=== PATIENT | male | born 1960 | race Caucasian/White ===

== ENCOUNTER 2017-05-31 00:04 | Emergency (ER) | payer MEDICARE, OTHER ==
[2017-05-31] MEDS ORDERED: 0.9 % SODIUM CHLORIDE 1000ML 1,000 ML IV SCH (00:15)
[2017-05-31 00:38] LABS: URINE APPEARANCE CLEAR; URINE BILIRUBIN NEGATIVE (NEGATIVE); URINE BLOOD NEGATIVE (NEGATIVE); URINE COLOR YELLOW; URINE GLUCOSE (UA) NEGATIVE (NEGATIVE); URINE KETONE NEGATIVE (NEGATIVE); URINE LEUKOCYTE ESTERASE NEGATIVE (NEGATIVE); URINE NITRITE NEGATIVE (NEGATIVE); URINE PROTEIN NEGATIVE (NEGATIVE); URINE UROBILINOGEN 0.2 E.U./dL (0.20 - 1.00)
[2017-05-31 00:38] LABS: HEMATOCRIT 45.3 % (42.0-52.0); HEMOGLOBIN 16.4 gm/dl (14.0-18.0); MEAN CELL VOLUME 88.6 fl (81-97); MEAN CORPUSCULAR HEMOGLOBIN 32.1 pg (27-33); MEAN CORPUSCULAR HGB CONC 36.2 g/dl (32-36); MEAN PLATELET VOLUME 10.1 fl (7.4-10.4); PLATELET COUNT 259 K/uL (130-400); RED BLOOD COUNT 5.11 M/uL (4.40-5.70); RED CELL DISTRIBUTION WIDTH 12.5 % (11.5-14.5); WHITE BLOOD COUNT W/O DIFF 6.2 K/uL (4.2-12.2)
[2017-05-31] MEDS ORDERED: ACETAMINOPHEN 1,000 MG/100 ML BTL IVPB ONE (00:44)
[2017-05-31] MEDS ORDERED: HYOSCYAMINE SULFATE ODT 0.125 MG TAB.SUBL SL ONE (00:44)
[2017-05-31 00:47] LABS: BLOOD UREA NITROGEN 14 mg/dL (6-20); CREATININE 1.2 mg/dL (0.7-1.2); EST GLOMERULAR FILTRATION RATE > 60 mL/min
[2017-05-31 00:48] LABS: TOTAL PROTEIN 6.5 g/dL (6.6-8.7)
--- NOTE | 2017-05-31 00:49 | Emergency Department Record ---
History of Present Illness - General Chief Complaint: Abdominal Pain Stated Complaint: ABDOMINAL PAIN X2 DAYS Time Seen by Provider: 05/31/17 00:06 Source: Patient Mode of Arrival: Ambulatory Limitations: No limitations - History of Present Illness Initial Comments: 56 yo male presents to ED for evaluation of severe abdominal "cramping" for the past 2 days. 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 Patient denies fevers, chills, nausea, or vomiting symptoms, patient does report constipation symptoms however. 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 MD Complaint: Abdominal pain Onset/Timin -: Days(s) Location: Periumbilical, Suprapubic Radiation: None Migration to: No migration Severity: Severe Quality: Cramping Consistency: Constant Improves With: Nothing Worsens With: Nothing - Related Data Previous Rx's Medication Instructions Recorded Hyoscyamine Sulfate [Levsin-Sl] 0.25 mg SL Q8H PRN #20 tab.subl 05/31/17 Allergies Allergy/AdvReac Type Severity Reaction Status Date / Time codeine Allergy ALTERED Verified 05/31/17 00:15 MENTAL STATUS Travel Screening - Travel/Exposure Within Last 30 Days Have you traveled within the last 30 days?: No - Travel/Exposure Within Last Year Have you traveled outside the [place] in the last year?: No - Additonal Travel Details Have you been exposed to anyone with a communicable illness?: No - Travel Symptoms Symptom Screening: None Review of Systems Constitutional: Denies: Chills, Fever, Malaise, Night sweats Eyes: Denies: Eye discharge, Eye pain ENT: Denies: Congestion, Ear pain, Epistaxis Respiratory: Denies: Cough, Dyspnea, Hemoptysis Cardiovascular: Denies: Chest pain, Dyspnea on exertion Endocrine: Denies: Fatigue, Heat or cold intolerance Gastrointestinal: Reports: Abdominal pain, Constipation, Nausea. Denies: Vomiting Genitourinary: Denies: Incontinence, Retention Musculoskeletal: Denies: Arthralgia, Back pain, Gout, Joint swelling Skin: Denies: Bruising, Change in color Neurological: Denies: Abnormal gait, Confusion, Headache, Seizure Psychiatric: Denies: Anxiety Hematological/Lymphatic: Denies: Anemia, Blood Clots Past Medical History - SOCIAL HISTORY Smoking Status: Never smoker Alcohol Use: None Drug Use: None - RESPIRATORY Hx Respiratory Disorders: No - CARDIOVASCULAR Hx Cardio Disorders: No - NEURO Hx Neuro Disorders: Yes Hx CVA: Yes Hx Dementia: Yes Hx Neuropathy: Yes 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 - GI Hx GI Disorders: Yes Hx Nausea/Vomiting: Yes Hx Wt Loss/Wt Gain: Yes - Hx Genitourinary Disorders: Yes 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 - ENDOCRINE Hx Endocrine Disorders: Yes Hx Thyroid Disease: Yes - MUSCULOSKELETAL Hx Musculoskeletal Disorders: Yes Hx Fibromyalgia: Yes - PSYCH Hx Psych Problems: Yes Hx Anxiety: Yes Hx Depression: Yes (ptsd) - HEMATOLOGY/ONCOLOGY Hx Hematology/Oncology Disorders: No Family Medical History Any Significant Family History?: No Physical Exam - General General Appearance: Alert, Oriented x3, Cooperative, Moderate distress Limitations: No limitations - Head Head exam: Atraumatic, Normocephalic, Normal inspection Head exam detail: negative: Abrasion, Contusion, Cooper's sign, General tenderness, Hematoma, Laceration - Eye Eye exam: Normal appearance. negative: Conjunctival injection, Periorbital swelling, Periorbital tenderness, Scleral icterus - ENT Ear exam: negative: Auricular hematoma, Auricular trauma Nasal Exam: negative: Active bleeding, Discharge, Dried blood, Foreign body Mouth exam: negative: Drooling, Laceration, Muffled voice, Tongue elevation - Neck Neck exam: Normal inspection. negative: Meningismus, Tenderness - Respiratory Respiratory exam: Normal lung sounds bilaterally. negative: Rales, Respiratory distress, Rhonchi, Stridor - Cardiovascular Cardiovascular Exam: Regular rate, Normal rhythm, Normal heart sounds - GI/Abdominal GI/Abdominal exam: Soft, Rigid, Tenderness, Other (Diffuse TTP on examination, guarding present, ? rigid abdomen). negative: Rebound - Rectal Rectal exam: Deferred - exam: Deferred - Extremities Extremities exam: Normal inspection. negative: Calf tenderness, Pedal edema, Tenderness - Back Back exam: Denies: CVA tenderness (R), CVA tenderness (L) - Neurological Neurological exam: Alert, Normal gait, Oriented X3 - Psychiatric Psychiatric exam: Anxious - Skin Skin exam: Normal color. negative: Abrasion Type of lesion: negative: abrasion Course Vital Signs 05/31/17 00:16 Temperature 97.4 F L Pulse Rate 61 Respiratory 20 Rate Blood Pressure 126/96 Pulse Ox 98 - Reevaluation(s) Reevaluation #1: 05/31/17 01:03 Labs reviewed and are grossly unremarkable for an acute process. Reevaluation #2: 05/31/17 02:24 CT Abdomen and Pelvis: Thickening fo the urinary bladder, correlate with UA 13 mm nodule right lung base, recommend follow-up in 3 months. Patient reassessed and reports that his cramping symptoms are greatly improved, patient appears stable for discharge at this time. Patient was encouraged to follow-up for repeat imaging the mentioned lung nodule to the right lung base as well in 3 months. Patient verbalizes understanding of all instructions and appears stable for discharge at this time. Medical Decision Making - Lab Data Result diagrams: 05/31/17 00:30 05/31/17 00:30 Lab Results 05/31/17 05/31/17 Range/Units 00:30 00:33 WBC 6.2 (4.2-12.2) K/uL RBC 5.11 (4.40-5.70) M/uL Hgb 16.4 (14.0-18.0) gm/dl Hct 45.3 (42.0-52.0) % MCV 88.6 (81-97) fl MCH 32.1 (27-33) pg MCHC 36.2 H (32-36) g/dl RDW 12.5 (11.5-14.5) % Plt Count 259 (130-400) K/uL MPV 10.1 (7.4-10.4) fl Neutrophils % 40.0 L (47-80) % Band Neutrophils % 0.0 (0-5) % Eosinophils % Not Reportable Basophils % Not Reportable Lymphocytes 53.0 H (16-45) % Monocytes 6.0 (0-9) % Basophils 0.0 (0-6) % Eosinophil Count 1.0 (0-6) % Urine Color Yellow Urine Appearance Clear Urine pH 6.0 (5.0-8.0) Ur Specific [place] 1.020 (1.002-1.030) Urine Protein Negative (NEGATIVE) Urine Glucose (UA) Negative (NEGATIVE) Urine Ketones Negative (NEGATIVE) Urine Blood Negative (NEGATIVE) Urine Nitrite Negative (NEGATIVE) Urine Bilirubin Negative (NEGATIVE) Urine Urobilinogen 0.2 (0.20 - 1.00) E.U./dL Ur Leukocyte Esterase Negative (NEGATIVE) Disposition Disposition: Discharge Clinical Impression: Abdominal pain Qualifiers: Abdominal location: generalized Qualified Code(s): R10.84 - Generalized abdominal pain Disposition: Home, Self-Care Condition: (2) Stable Instructions: Abdominal Pain (ED) Additional Instructions: Return to ED if your symptoms worsen or if you have any concerns. Levsin as directed. Follow-up with your family doctor in 1-3 days as directed. Follow-up with your family doctor regarding lung nodule for repeat imaging in 3 months. Prescriptions: Hyoscyamine Sulfate [Levsin-Sl] 0.25 mg SL Q8H PRN #20 tab.subl PRN Reason: Abdominal Pain Forms: Patient Portal Access Time of Disposition: 02:27 Quality - Quality Measures Quality Measures: N/A - Blood Pressure Screening Does Patient Have Any of the Following: No Blood Pressure Classification: Hypertensive Reading Systolic Measurement: 126 Diastolic Measurement: 96 Screening for High Blood Pressure: < First Hypertensive BP, F/U Documented > [ G8950] First Hypertensive Follow-up Interventions: Referral to alternative/primary care provider.
[2017-05-31 00:50] LABS: GLUCOSE,RANDOM 87 mg/dL (74-109)
[2017-05-31 00:52] LABS: ALB/GLOB RATIO 2.3 (1.1-1.8); ALBUMIN 4.5 g/dL (4.0-5.0); ALKALINE PHOSPHATASE 64 U/L (40-129); ALT/SGPT 16 U/L (<41); AST/SGOT 22 U/L (10.0-50.0)
[2017-05-31 00:53] LABS: LIPASE 46 U/L (13-60)
--- NOTE | 2017-05-31 08:43 | CT SCAN REPORT ---
EXAM: CT OF THE ABDOMEN AND PELVIS WITH CONTRAST HISTORY: ABDOMINAL PAIN. TECHNIQUE: Sequential axial images were obtained from the diaphragms through the ischiorectal fossa after intravenous administration of 100 ml of Omnipaque 300 contrast material. FINDINGS: The visualized lung bases demonstrate a 13 mm nodule in the right lung base. The gallbladder is surgically removed. No gross abnormalities within the liver. The pancreas and spleen appear normal. The adrenal glands appear normal. There is an indeterminate cystic lesion in the left kidney measuring 16 mm. This should be further evaluated with multiphasic MR imaging. The small bowel appears normal. The colon appears normal.. The appendix is visualized and appears normal. There is incomplete distention versus wall thickening of the urinary bladder. The prostate gland appears normal. The osseous structures are normal. IMPRESSION: 1. CIRCUMFERENTIAL WALL THICKENING OF THE URINARY BLADDER. THIS IS LIKELY RELATED TO UNDERDISTENTION OR CHRONIC OBSTRUCTION. CYSTITIS CAN ALSO NOT BE ENTIRELY EXCLUDED. CORRELATION WITH PATIENT'S URINALYSIS IS RECOMMENDED. 2. 13 MM NODULE IN THE RIGHT LUNG BASE. CONTINUED SHORT TERM FOLLOW-UP IMAGING IN THREE MONTHS IS RECOMMENDED. DEDICATED CT OF THE CHEST IS ALSO RECOMMENDED FOR EVALUATION OF ADDITIONAL NODULES. 3. INDETERMINATE LESION IN THE LEFT KIDNEY MEASURING 16 MM. THIS SHOULD BE FURTHER EVALUATED WITH MULTIPHASIC MR IMAGING. JOB NUMBER: [id number] MTDD
== END 2017-05-31 02:35 | disposition home or self-care (01) ==
LOC: ER 00:04
DX: R10.84 Generalized abdominal pain (principal); R91.1 Solitary pulmonary nodule
CPT/HCPCS: 99284 ×2; 96365; 83690; 80053; 81003; 85027; 74177; Q9967; J1980; J7030

== ENCOUNTER 2017-06-29 19:34 | Emergency (ER) | payer MEDICARE, OTHER ==
[2017-06-29] MEDS ORDERED: ONDANSETRON HCL IV 4 MG/2 ML VIAL IV ONE (19:40)
[2017-06-29] MEDS ORDERED: 0.9 % SODIUM CHLORIDE 1,000 ML BAG IV ONE ×2 (19:40→20:40)
[2017-06-29] MEDS ORDERED: ACETAMINOPHEN 1,000 MG/100 ML BTL IVPB ONE (19:40)
--- NOTE | 2017-06-29 19:51 | Emergency Department Record ---
History of Present Illness - General Chief Complaint: Abdominal Pain Stated Complaint: ABDOMINAL PAIN Time Seen by Provider: 06/29/17 19:35 Source: Patient, Family Mode of Arrival: Ambulatory Limitations: No limitations - History of Present Illness Initial Comments: 56 yo male presents with abdominal pain for about one month. The pain is a cramp like pain. It goes from the up to the lower abdomen. He has decreased appetite with the pain. He has had several prior surgeries including gall bladder, partial colon resection, feeding tubes (after strokes). He was seen in the ER in May. He had a follow up MRI of his abdomen but does not know the results. He is scheduled to follow up with Dr Ignacio July 23. No current PCP at [facility]. The patient reports some abdominal issue dating back to about 2013. He developed abdominal pain after a colonoscopy in 2013. 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 This was removed in [facility] after some blood in the stools. He reports troubles since that time. He attributes many of his health issues to chronic lead poisoning that lead to many chronic medical conditions. He recently moved to the area. MD Complaint: Abdominal pain -: Days(s) Location: Epigastric Radiation: Suprapubic Migration to: Periumbilical Severity: Severe Quality: Aching, Cramping Consistency: Constant Improves With: Nothing Worsens With: Eating Associated Symptoms: Denies other symptoms - Related Data Home Medications Medication Instructions Recorded Confirmed Last Taken Acetaminophen 325 mg PO 06/29/17 Unknown Atorvastatin Calcium 40 mg PO QHS 06/29/17 06/29/17 06/29/17 Bisacodyl 5 mg PO 06/29/17 Unknown Cholecalciferol (Vitamin D3) 1,000 unit PO 06/29/17 Unknown [Vitamin D3] Donepezil HCl 10 mg PO 06/29/17 Unknown Duloxetine HCl [Cymbalta] 60 mg PO 06/29/17 Unknown Hydroxyzine HCl 5 mg PO 06/29/17 Unknown Lamotrigine 100 mg PO 06/29/17 Unknown Levothyroxine Sodium [Synthroid] 25 mcg PO DAILY 06/29/17 06/29/17 06/29/17 Magnesium Oxide [Mag Ox] 400 mg PO DAILY 06/29/17 06/29/17 06/29/17 Oxcarbazepine [Trileptal] 150 mg PO 06/29/17 Unknown Oxybutynin Chloride [Ditropan] 5 mg PO DAILY 06/29/17 06/29/17 06/29/17 Pantoprazole Sodium 40 mg PO DAILY 06/29/17 06/29/17 06/29/17 Pregabalin [Lyrica] 200 mg PO 06/29/17 Unknown Tamsulosin HCl [Flomax] 0.4 mg PO DAILY 06/29/17 06/29/17 06/29/17 Trazodone HCl 100 mg PO 06/29/17 Unknown Previous Rx's Medication Instructions Recorded Hydrocodone/Acetaminophen [[place] 1 each PO TID PRN #10 tablet 06/29/17 5-325 Tablet] Hyoscyamine Sulfate [Levsin-Sl] 0.125 mg SL BID PRN #15 tab.subl 06/29/17 Allergies Allergy/AdvReac Type Severity Reaction Status Date / Time codeine Allergy ALTERED Verified 05/31/17 00:15 MENTAL STATUS Travel Screening - Travel/Exposure Within Last 30 Days Have you traveled within the last 30 days?: No - Travel Symptoms Symptom Screening: None Review of Systems Constitutional: Denies: Chills, Fever, Malaise, Weakness Eyes: Denies: Eye discharge ENT: Denies: Congestion, Throat pain Respiratory: Denies: Cough, Dyspnea, Hemoptysis, Stridor, Wheezes Cardiovascular: Denies: Chest pain, Palpitations, Syncope Endocrine: Denies: Fatigue Gastrointestinal: Reports: Abdominal pain, Constipation (smaller firm stools), Nausea, Vomiting. Denies: Diarrhea Genitourinary: Denies: Dysuria, Frequency, Hematuria Musculoskeletal: Denies: Arthralgia, Back pain, Myalgia, Neck pain Skin: Denies: Bruising, Change in color, Rash Neurological: Denies: Headache, Numbness, Weakness Psychiatric: Reports: Anxiety Hematological/Lymphatic: Denies: Blood Clots, Easy bleeding, Easy bruising, Swollen glands Past Medical History - SOCIAL HISTORY Smoking Status: Never smoker Alcohol Use: None Drug Use: None - RESPIRATORY Hx Respiratory Disorders: No - CARDIOVASCULAR Hx Cardio Disorders: No - NEURO Hx Neuro Disorders: Yes Hx CVA: Yes Hx Dementia: Yes Hx Neuropathy: Yes 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 - GI Hx GI Disorders: Yes Hx Nausea/Vomiting: Yes Hx Wt Loss/Wt Gain: Yes - Hx Genitourinary Disorders: Yes 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 negative: Conjunctival injection, Scleral icterus - ENT ENT exam: Normal exam, Mucous membranes moist Ear exam: Normal external inspection Nasal Exam: Normal inspection Mouth exam: Normal external inspection Teeth exam: Normal inspection Throat exam: Normal inspection - Neck Neck exam: Normal inspection - Respiratory Respiratory exam: Normal lung sounds bilaterally. negative: Respiratory distress - Cardiovascular Cardiovascular Exam: Regular rate, Normal rhythm, Normal heart sounds - GI/Abdominal GI/Abdominal exam: Soft, Tenderness (the abdomen is very soft with diffuse tenderness). negative: Distended, Guarding, Rebound, Rigid - Rectal Rectal exam: Deferred - exam: Deferred - Extremities Extremities exam: Normal inspection, Full ROM, Normal capillary refill. negative: Tenderness - Back Back exam: Reports: Normal inspection, Full ROM. Denies: Muscle spasm, Rash noted, Tenderness - Neurological Neurological exam: Alert, Normal gait, Oriented X3 - Psychiatric Psychiatric exam: Normal affect, Normal mood - Skin Skin exam: Dry, Intact, Normal color, Warm Course Vital Signs 06/29/17 06/29/17 19:37 19:40 Temperature 97.6 F 97.6 F Pulse Rate [ 75 Pulse Ox Probe] Respiratory 20 20 Rate Blood Pressure 131/92 [Left Arm] Pulse Ox 99 99 - Reevaluation(s) Reevaluation #1: CT reviewed from 05.31.17 06/29/17 19:51 06/29/17 20:26 The labs were reviewed. No acute changes on the CBC, CMP or Lipase The Lactic Acid is normal 06/29/17 22:33 The UA is negative 06/29/17 22:[address] scan result was received. No acute intraabdominal process. Nodule noted in the right lower lung. Post op dilatation of the CBD may consider ERCP. The labs are normal without signs of obstruction with normal LFTS, BIli, Alk Phos, Lipase. 06/29/17 22:57 We discussed follow up as an outpatient for his abdominal pain, referral for a local PCP and a general surgery referral to assist in helping him with is abdominal pain. Medical Decision Making - Lab Data Result diagrams: 06/29/17 19:50 06/29/17 19:50 Disposition Disposition: Discharge Clinical Impression: Abdominal pain Disposition: Home, Self-Care Condition: (1) Good Instructions: Abdominal Pain (ED) Additional Instructions: Call Dr Self for a new family doctor You have been referred to the [facility] for General Surgery for your abdominal pain Prescriptions: Hydrocodone/Acetaminophen [[place] 5-325 Tablet] 1 each PO TID PRN #10 tablet PRN Reason: Pain - General Hyoscyamine Sulfate [Levsin-Sl] 0.125 mg SL BID PRN #15 tab.subl PRN Reason: Abdominal Pain Referrals: Clayton Singh [DOCTOR OF OSTEOPATH] - NICOLE SELF [MEDICAL DOCTOR] - [facility] Specialty Clinics [Provider Group] Forms: Patient Portal Access Time of Disposition: 23:00 Quality - Quality Measures Quality Measures: N/A - Blood Pressure Screening Does Patient Have Any of the Following: No Blood Pressure Classification: Pre-Hypertensive BP Reading Systolic Measurement: 127 Diastolic Measurement: 74 Screening for High Blood Pressure: < Pre-Hypertensive BP, F/U Documented > [ G8950] Pre-Hypertensive Follow-up Interventions: Referral to alternative/primary care provider.
[2017-06-29 19:52] LABS: BASO % 0.2 % (0-6); EOS % 1.3 % (0-6); GRAN % 47.6 % (47-80); HEMATOCRIT 43.8 % (42.0-52.0); HEMOGLOBIN 15.7 gm/dl (14.0-18.0); MEAN CELL VOLUME 89.9 fl (81-97); MEAN CORPUSCULAR HEMOGLOBIN 32.2 pg (27-33); MEAN CORPUSCULAR HGB CONC 35.8 g/dl (32-36); MEAN PLATELET VOLUME 9.7 fl (7.4-10.4); MONO % 9.9 % (0-9); PLATELET COUNT 215 K/uL (130-400); RED BLOOD COUNT 4.87 M/uL (4.40-5.70); RED CELL DISTRIBUTION WIDTH 12.5 % (11.5-14.5); WHITE BLOOD COUNT W/O DIFF 5.6 K/uL (4.2-12.2)
[2017-06-29 20:02] LABS: BLOOD UREA NITROGEN 16 mg/dL (6-20); EST GLOMERULAR FILTRATION RATE > 60 mL/min
[2017-06-29 20:03] LABS: TOTAL PROTEIN 6.9 g/dL (6.6-8.7)
[2017-06-29 20:05] LABS: GLUCOSE,RANDOM 104 mg/dL (74-109)
[2017-06-29 20:07] LABS: ALT/SGPT 15 U/L (<41)
[2017-06-29 20:08] LABS: ALBUMIN 4.9 g/dL (4.0-5.0); ALKALINE PHOSPHATASE 80 U/L (40-129); AST/SGOT 17 U/L (10.0-50.0); BILIRUBIN,DIRECT < 0.2 mg/dL (0-0.3); LIPASE 28 U/L (13-60)
[2017-06-29] MEDS ORDERED: HYDROMORPHONE HCL 1 MG/ML SYRINGE IVP ONE (20:12)
[2017-06-29] MEDS ORDERED: PANTOPRAZOLE SODIUM IV 40 MG VIAL IVP ONE (20:29)
[2017-06-29] MEDS ORDERED: LORAZEPAM 2 MG/ML VIAL IV ONE (20:48)
[2017-06-29] MEDS ORDERED: HYOSCYAMINE SULFATE ODT 0.125 MG TAB.SUBL SL ONE (21:37)
[2017-06-29 21:53] LABS: URINE APPEARANCE CLEAR; URINE BILIRUBIN NEGATIVE (NEGATIVE); URINE BLOOD NEGATIVE (NEGATIVE); URINE COLOR YELLOW; URINE GLUCOSE (UA) NEGATIVE (NEGATIVE); URINE KETONE NEGATIVE (NEGATIVE); URINE LEUKOCYTE ESTERASE NEGATIVE (NEGATIVE); URINE NITRITE NEGATIVE (NEGATIVE); URINE PROTEIN NEGATIVE (NEGATIVE); URINE UROBILINOGEN 0.2 E.U./dL (0.20 - 1.00)
[2017-06-29] MEDS ORDERED: HYDROCODONE/APAP 5/325MG TABLET PO ONE (22:58)
[2017-06-29] MEDS ORDERED: ONDANSETRON 4 MG ODT TABLET SL ONE (22:58)
--- NOTE | 2017-06-30 06:28 | CT SCAN REPORT ---
DATE: 06/29/2017. EXAM: CT SCAN OF THE ABDOMEN AND PELVIS. HISTORY: The patient has generalized sharp abdominal pain. TECHNIQUE: Serial axial CT scan of the abdomen and pelvis was performed at 3.75 mm intervals from the dome of the diaphragm down to the pubic symphysis following the intravenous administration of 100 mL of Omnipaque 300 and oral contrast. COMPARISON: CT scan of the abdomen and pelvis dated 05/31/2017 is provided. FINDINGS: The lung windows of the lung bases demonstrate a nonspecific 7.3 mm nodule within the right posterior lower lobe. This finding appears new with respect to the prior CT scan. The previously visualized nonspecific nodule within the right lateral lower lobe is not visualized on the current examination. A dedicated CT scan of the chest can be obtained for further evaluation of this finding. The visualized heart size and contour is within normal limits. The liver, spleen, pancreas, and adrenal glands are unremarkable. Cholecystectomy clips are noted within the right upper quadrant of the abdomen. The common bile duct measures 13 mm in diameter (normal for a postcholecystectomy patient is less than or equal to 11 mm). If there is further clinical concern, then an MRCP examination can be obtained for further evaluation. There is no CT evidence of hydronephrosis or hydroureter. Several bilateral renal cysts are identified which appear unchanged with respect to the prior CT scan. If there is further clinical concern, then an ultrasound examination of the kidneys can be obtained for further evaluation. The contour, caliber, and flow within the abdominal aorta is within normal limits. There is no CT evidence of retroperitoneal, pelvic, or inguinal lymph adenopathy. The bowel gas pattern is nonspecific and nonobstructive. There is no CT evidence of free intraperitoneal fluid or free intraperitoneal air. The appendix is clearly visualized, and there is no CT evidence of appendicitis. Postoperative changes are identified within the small bowel in the right lower quadrant of the abdomen compatible with the patient's given clinical history of surgery for Meckel's diverticulum. There is no CT evidence of free intraperitoneal fluid or free intraperitoneal air. The urinary bladder is unremarkable. The prostate is unremarkable. A small radiopaque density is noted within the linea alba of the upper abdomen. This is unchanged with respect to the prior CT scan and may be the result of postoperative changes. IMPRESSION: 1. POSTOPERATIVE CHANGES OF THE BOWEL ARE NOTED DISCUSSED ABOVE. THERE IS NO CT EVIDENCE OF AN ACUTE INTRA-ABDOMINAL PROCESS. 2. DISTENSION OF THE COMMON BILE DUCT IS NOTED DISCUSSED ABOVE. THIS IS SLIGHTLY LARGER THAN WOULD BE EXPECTED FOR A POSTCHOLECYSTECTOMY PATIENT. IF THERE IS FURTHER CLINICAL CONCERN, THEN AN MRCP EXAMINATION CAN BE OBTAINED FOR FURTHER FURTHER EVALUATION. 3. A NONSPECIFIC NODULE IS NOTED WITHIN THE RIGHT LOWER LOBE WHICH APPEARS NEW WITH RESPECT TO THE PRIOR CT SCAN. I WOULD SUGGEST A CT SCAN OF THE CHEST FOR FURTHER EVALUATION OF THIS FINDING. 4. MULTIPLE CYSTS ARE IDENTIFIED WITHIN THE BILATERAL KIDNEYS. THESE APPEAR UNCHANGED WITH RESPECT TO THE PRIOR CT SCAN. IF THERE IS FURTHER CLINICAL CONCERN, THEN AN ULTRASOUND EXAMINATION OF THE KIDNEYS CAN BE OBTAINED FOR FURTHER EVALUATION. JOB NUMBER: [id number] MTDD
== END 2017-06-29 23:18 | disposition home or self-care (01) ==
LOC: ER 19:34
DX: R10.84 Generalized abdominal pain (principal); R91.1 Solitary pulmonary nodule; Z77.011 Contact with and (suspected) exposure to lead; Z86.73 Personal history of transient ischemic attack (TIA), and cerebral infarction without residual deficits
CPT/HCPCS: 74177; 80048; 80076; 81003; 83605; 83690; 85025; 96365; 96375; 99284; C9113; J1170; J2405; J7030

== ENCOUNTER 2017-07-11 19:11 | Emergency (ER) | payer MEDICARE, OTHER ==
[2017-07-11] MEDS ORDERED: IPRATROPIUM/ALBUTEROL (0.5MG/3MG) NEB INH ONE (19:15)
--- NOTE | 2017-07-11 19:46 | Emergency Department Record ---
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 Tonight he was eating stew and chewing a piece of meat which he states became stuck in his esopohagus/throat--he points to his cricoid cartilage as the level it is at. He has coughing/gagging episodes but is unable to get the meat up on arrival. he is having difficulty with his speech due to the blockage. Onset/Timin -: Minutes(s) Radiation: Neck Severity: Mild Consistency: Constant Worsens With: Nothing Context: Choking/aspiration Associated Symptoms: Denies other symptoms Treatments Prior to Arrival: None - Related Data Home Oxygen Therapy: No Home Oxygen Amount: none Previous Rx's Medication Instructions Recorded Hydrocodone/Acetaminophen [[place] 1 each PO TID PRN #10 tablet 06/29/17 5-325 Tablet] Hyoscyamine Sulfate [Levsin-Sl] 0.125 mg SL BID PRN #15 tab.subl 06/29/17 Allergies Allergy/AdvReac Type Severity Reaction Status Date / Time codeine Allergy ALTERED Verified 07/11/17 19:27 MENTAL STATUS lorazepam [From Ativan] AdvReac BEHAVIORAL Verified 07/11/17 19:27 CHANGES Travel Screening - Travel/Exposure Within Last 30 Days Have you traveled within the last 30 days?: No - Travel/Exposure Within Last Year Have you traveled outside the [place] in the last year?: No - Additonal Travel Details Have you been exposed to anyone with a communicable illness?: No - Travel Symptoms Symptom Screening: None Review of Systems Reviewed: No additional complaints except as noted below Constitutional: Reports: As per HPI. Denies: Chills, Fever, Malaise, Night sweats, Weakness, Weight change Eyes: Reports: As per HPI. Denies: Eye discharge, Eye pain, Photophobia, Vision change ENT: Reports: As per HPI. Denies: Congestion, Dental pain, Ear pain, Epistaxis , Hearing loss, Throat pain Respiratory: Reports: As per HPI. Denies: Cough, Dyspnea, Hemoptysis, Stridor, Wheezes Cardiovascular: Reports: As per HPI. Denies: Arrhythmia, Chest pain, Dyspnea on exertion, Edema, Murmurs, Orthopnea, Palpitations, Paroxysmal nocturnal dyspnea, Rheumatic Fever, Syncope Endocrine: Reports: As per HPI. Denies: Fatigue, Heat or cold intolerance, Polydipsia, Polyuria Gastrointestinal: Reports: As per HPI. Denies: Abdominal pain, Constipation, Diarrhea, Hematemesis, Hematochezia, Melena, Nausea, Vomiting Genitourinary: Reports: As per HPI. Denies: Dysuria, Frequency, Hematuria, Incontinence, Retention, Testicular pain, Testicular mass, Urgency Musculoskeletal: Reports: As per HPI. Denies: Arthralgia, Back pain, Gout, Joint swelling, Myalgia, Neck pain Skin: Reports: As per HPI. Denies: Bruising, Change in color, Change in hair/ nails, Lesions, Pruritus, Rash Neurological: Reports: As per HPI. Denies: Abnormal gait, Confusion, Headache, Numbness, Paresthesias, Seizure, Tingling, Tremors, Vertigo, Weakness Psychiatric: Reports: As per HPI. Denies: Anxiety, Auditory hallucinations, Depression, Homicidal thoughts, Suicidal thoughts, Visual hallucinations Hematological/Lymphatic: Reports: As per HPI. 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 - ENDOCRINE Hx Endocrine Disorders: Yes Hx Thyroid Disease: Yes - MUSCULOSKELETAL Hx Musculoskeletal Disorders: Yes Hx Fibromyalgia: Yes - PSYCH Hx Psych Problems: Yes Hx Anxiety: Yes Hx Depression: Yes (ptsd) - HEMATOLOGY/ONCOLOGY Hx Hematology/Oncology Disorders: No Family Medical History Any Significant Family History?: No Physical Exam - General General Appearance: Alert, Oriented x3, Cooperative, Moderate distress (unable to speak clearly, drooling slightly with stridorous respiration on inspiration, choking sounds, coughing) - Head Head exam: Normal inspection - Eye Eye exam: Normal appearance, PERRL Pupils: Normal accommodation - ENT ENT exam: Normal exam, Mucous membranes moist, Normal external ear exam, Normal orophraynx, TM's normal bilaterally Ear exam: Normal external inspection. negative: External canal tenderness Nasal Exam: Normal inspection. negative: Discharge, Sinus tenderness Mouth exam: Normal external inspection, Tongue normal Teeth exam: Normal inspection. negative: Dental caries Throat exam: Normal inspection. negative: Tonsillar erythema, Tonsillar exudate - Neck Neck exam: Normal inspection, Full ROM. negative: Tenderness - Respiratory Respiratory exam: Respiratory distress (due to upper airway coughing, gagging) - Cardiovascular Cardiovascular Exam: Regular rate, Normal rhythm, Normal heart sounds - GI/Abdominal GI/Abdominal exam: Soft, Normal bowel sounds. negative: Tenderness - Rectal Rectal exam: Deferred - exam: Deferred - Extremities Extremities exam: Normal inspection, Full ROM, Normal capillary refill. negative: Tenderness - Back Back exam: Reports: Normal inspection, Full ROM. Denies: Muscle spasm, Rash noted, Tenderness - Neurological Neurological exam: Alert, Normal gait, Oriented X3, Reflexes normal - Psychiatric Psychiatric exam: Normal affect, Normal mood - Skin Skin exam: Dry, Intact, Normal color, Warm Course Vital Signs 07/11/17 19:29 Temperature 97.8 F Pulse Rate 96 H Respiratory 20 Rate Blood Pressure 126/92 Pulse Ox 96 - Reevaluation(s) Reevaluation #1: Repeat exam after gas ex; shows patient breathing easier, but now is having anxiety. Coughing, stridor and drooling have resolved. Requesting a CXR which is currently pending. Much more comfortable. 07/11/17 21:06 07/11/17 21:28 Reevaluation #2: Patient states he has a new patient appointment with Dr Lara this which he will keep. GI consult ordered. Patient drank a large glass of water while here with no difficultly. Ready to go home. 07/11/17 22:11 Medical Decision Making - Management Options MDM Management: Additional Work-up Planned (e.g. ADM/Transfer/OP Study) (GI consult in [facility]) - Data Complexity MDM Data: X-Ray Ordered and/or Reviewed (CXR Linear or plate like atelectasis or scarring in the RLL, otherwise negative acute abn. per radiologist.) Disposition Disposition: Discharge Clinical Impression: Anxiety FB esophagus Qualifiers: Encounter type: initial encounter Qualified Code(s): T18.108A - Unspecified foreign body in esophagus causing other injury, initial encounter Disposition: Home, Self-Care Condition: (1) Good Instructions: Esophageal Foreign Body (ED), Esophageal Stricture (ED), Esophageal Spasm (ED) Additional Instructions: Clear to full liquid diet as tolerated. Follow up with Dr. Lara as previously arranged this week. GI consult with Dr. Ni for esophageal disease. Referrals: MAHIN ZULUAGA [DOCTOR OF OSTEOPATH] - Quality - Quality Measures Quality Measures: N/A - Blood Pressure Screening Does Patient Have Any of the Following: No Blood Pressure Classification: Hypertensive Reading Systolic Measurement: 126 Diastolic Measurement: 92 Screening for High Blood Pressure: < Normal BP, F/U Not Required > [G8783]
[2017-07-11] MEDS ORDERED: DIAZEPAM 5MG/ML **10ML VIAL IVP ONE ×2 (19:52→21:38)
[2017-07-11] MEDS ORDERED: SIMETH/SOD BICARB/CIT AC EFF PKT PO ONE (21:06)
[2017-07-11] MEDS ORDERED: MAGNESIUM HYDROXIDE/AL HYDROX 30 ML, LIDOCAINE VISC 2% 200 MG PO ONE ×2 (21:39)
--- NOTE | 2017-07-12 15:13 | RADIOLOGY REPORT ---
EXAM: CHEST, TWO VIEWS HISTORY: CHOKING EPISODE. TECHNIQUE: Two views of the chest were obtained. Comparison: None. FINDINGS: The heart is not enlarged. No mediastinal mass. No acute infiltrate or vascular congestion identified. A linear area of plate like atelectasis or scarring is seen in the lower right lung. IMPRESSION: 1. LINEAR PLATE LIKE AREA OF ATELECTASIS OR SCARRING IN THE RIGHT LOWER LUNG. 2. CHEST OTHERWISE UNREMARKABLE. JOB NUMBER: [id number] MTDD
== END 2017-07-11 22:37 | disposition home or self-care (01) ==
LOC: ER 19:11
DX: T18.128A Food in esophagus causing other injury, initial encounter (principal); R05 Cough; F41.0 Panic disorder [episodic paroxysmal anxiety]
CPT/HCPCS: 71046; 94640; 96374; 96376; 99284

== ENCOUNTER 2017-07-20 17:21 | Emergency (ER) | payer MEDICARE, OTHER ==
[2017-07-20 18:33] LABS: INFLUENZA A POSITIVE (NEGATIVE); INFLUENZA B NEGATIVE (NEGATIVE)
[2017-07-20] MEDS ORDERED: ONDANSETRON HCL IV 4 MG/2 ML VIAL IVP ONE (18:37)
[2017-07-20] MEDS ORDERED: KETOROLAC 30 MG/ML VIAL IVP ONE (18:37)
--- NOTE | 2017-07-20 18:41 | Emergency Department Record ---
History of Present Illness - General Chief complaint: Flu Like Symptoms Stated complaint: FEVER,COUGH,VOMITING,SINUS PAIN Time Seen by Provider: 07/20/17 18:34 Source: Patient Mode of Arrival: Ambulatory Limitations: No limitations - History of Present Illness Initial comments: 56 yo male presents to ED for evaluation of sinus pressure, body aches, maylagias, and cough symptoms for the past 3 days. Patient reports nause/ vomiting and loose stools as well, denies abdominal pain symptoms. 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 MD Complaint: Generalized weakness Onset/Timin -: Days(s) Location: Generalized Severity: Moderate Quality: Aching Consistency: Constant Improves with: None Worsens with: None Associated Symptoms: Fever/chills, Loss of appetite, Nausea/vomiting - [place] Coma Scale Eye Response: (4) Open spontaneously Motor Response: (6) Obeys commands Verbal Response: (5) Oriented [place] Total: 15 - Related Data Previous Rx's Medication Instructions Recorded Hydrocodone/Acetaminophen [[place] 1 each PO TID PRN #10 tablet 06/29/17 5-325 Tablet] Hyoscyamine Sulfate [Levsin-Sl] 0.125 mg SL BID PRN #15 tab.subl 06/29/17 Doxycycline Hyclate [Doxycycline] 100 mg PO BID #20 cap 07/20/17 Oseltamivir Phosphate [Tamiflu] 75 mg PO BID #9 capsule 07/20/17 Allergies Allergy/AdvReac Type Severity Reaction Status Date / Time codeine Allergy ALTERED Verified 07/20/17 18:01 MENTAL STATUS lorazepam [From Ativan] AdvReac BEHAVIORAL Verified 07/20/17 18:01 CHANGES Travel Screening - Travel/Exposure Within Last 30 Days Have you traveled within the last 30 days?: No - Travel/Exposure Within Last Year Have you traveled outside the [place] in the last year?: No - Additonal Travel Details Have you been exposed to anyone with a communicable illness?: No - Travel Symptoms Symptom Screening: None Review of Systems Constitutional: Reports: Chills, Fever, Malaise, Weakness. Denies: Night sweats Eyes: Denies: Eye discharge, Eye pain ENT: Reports: Congestion. Denies: Ear pain, Epistaxis Respiratory: Reports: Cough Cardiovascular: Denies: Chest pain, Dyspnea on exertion Endocrine: Reports: Fatigue. Denies: Heat or cold intolerance Gastrointestinal: Reports: Diarrhea, Nausea, Vomiting Genitourinary: Denies: Incontinence, Retention Musculoskeletal: Denies: Arthralgia, Back pain, Gout, Joint swelling Skin: Denies: Bruising, Change in color Neurological: Reports: Headache. 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 - ENDOCRINE Hx Endocrine Disorders: Yes Hx Thyroid Disease: Yes - MUSCULOSKELETAL Hx Musculoskeletal Disorders: Yes Hx Fibromyalgia: Yes - PSYCH Hx Psych Problems: Yes Hx Anxiety: Yes Hx Depression: Yes (ptsd) - HEMATOLOGY/ONCOLOGY Hx Hematology/Oncology Disorders: No Family Medical History Any Significant Family History?: No Physical Exam - General General Appearance: Alert, Oriented x3, Cooperative, Moderate distress Limitations: No limitations - Head Head exam: Atraumatic, Normocephalic, Normal inspection Head exam detail: negative: Abrasion, Contusion, Cooper's sign, General tenderness, Hematoma, Laceration - Eye Eye exam: Normal appearance. negative: Conjunctival injection, Periorbital swelling, Periorbital tenderness, Scleral icterus - ENT Ear exam: negative: Auricular hematoma, Auricular trauma Nasal Exam: Sinus tenderness. negative: Active bleeding, Discharge, Dried blood Mouth exam: negative: Drooling, Laceration, Tongue elevation - Neck Neck exam: Normal inspection. negative: Meningismus, Tenderness - Respiratory Respiratory exam: Normal lung sounds bilaterally. negative: Respiratory distress, Rhonchi, Stridor, Wheezes - Cardiovascular Cardiovascular Exam: Regular rate, Normal rhythm, Normal heart sounds - GI/Abdominal GI/Abdominal exam: Soft. negative: Rebound, Rigid, Tenderness - Rectal Rectal exam: Deferred - exam: Deferred - Extremities Extremities exam: Normal inspection. negative: Pedal edema, Tenderness - Back Back exam: Denies: CVA tenderness (R), CVA tenderness (L) - Neurological Neurological exam: Alert, Normal gait, Oriented X3 - Psychiatric Psychiatric exam: Normal affect, Normal mood - Skin Skin exam: Normal color. negative: Abrasion Type of lesion: negative: abrasion Course Vital Signs 07/20/17 17:45 Temperature 99.0 F Pulse Rate 88 Respiratory 20 Rate Blood Pressure 127/85 Pulse Ox 96 - Reevaluation(s) Reevaluation #1: 07/20/17 19:18 Influenza A positive Laboratory studies reviewed, WBC 3.0, labs are otherwise grossly unremarkable for an acute process. Reevaluation #2: 07/20/17 19:59 CXR: Atelectasis left base Reevaluation #3: 07/20/17 20:27 Patient reassessed and reports improvement in his symptoms, reports that he is ready to go home with outpatient treatment for influenza and possible sinusitis. Medical Decision Making - Lab Data Result diagrams: 07/20/17 18:10 07/20/17 18:10 Lab Results 07/20/17 Range/Units 18:10 Influenza Type A Ag Positive H (NEGATIVE) Influenza Type B Ag Negative (NEGATIVE) Disposition Disposition: Discharge Clinical Impression: Influenza A Sinusitis Qualifiers: Sinusitis location: unspecified location Chronicity: acute Recurrence: non- recurrent Qualified Code(s): J01.90 - Acute sinusitis, unspecified Disposition: Home, Self-Care Condition: (2) Stable Instructions: Influenza (ED) Additional Instructions: Return to ED if your symptoms worsen or if you have any concerns. Tamiflu as directed. Ibuprofen/Tylenol as needed for fever/body aches. Follow-up with your family doctor in 3-5 days as directed. Prescriptions: Doxycycline Hyclate [Doxycycline] 100 mg PO BID #20 cap Oseltamivir Phosphate [Tamiflu] 75 mg PO BID #9 capsule Forms: Patient Portal Access Time of Disposition: 20:29 Quality - Quality Measures Quality Measures: N/A - Blood Pressure Screening Does Patient Have Any of the Following: No Blood Pressure Classification: Pre-Hypertensive BP Reading Systolic Measurement: 127 Diastolic Measurement: 85 Screening for High Blood Pressure: < Pre-Hypertensive BP, F/U Documented > [ G8950] Pre-Hypertensive Follow-up Interventions: Referral to alternative/primary care provider.
[2017-07-20] MEDS ORDERED: 0.9 % SODIUM CHLORIDE 1000ML 1,000 ML IV SCH ×2 (18:45→20:00)
[2017-07-20 18:46] LABS: HEMATOCRIT 40.8 % (42.0-52.0); HEMOGLOBIN 14.2 gm/dl (14.0-18.0); MEAN CELL VOLUME 92.3 fl (81-97); MEAN CORPUSCULAR HEMOGLOBIN 32.1 pg (27-33); MEAN CORPUSCULAR HGB CONC 34.8 g/dl (32-36); MEAN PLATELET VOLUME 10.3 fl (7.4-10.4); PLATELET COUNT 163 K/uL (130-400); RED BLOOD COUNT 4.42 M/uL (4.40-5.70); RED CELL DISTRIBUTION WIDTH 12.3 % (11.5-14.5)
[2017-07-20 18:57] LABS: BLOOD UREA NITROGEN 10 mg/dL (6-20); EST GLOMERULAR FILTRATION RATE > 60 mL/min
[2017-07-20 18:58] LABS: TOTAL PROTEIN 6.3 g/dL (6.6-8.7)
[2017-07-20 19:00] LABS: GLUCOSE,RANDOM 83 mg/dL (74-109)
[2017-07-20 19:03] LABS: ALB/GLOB RATIO 2.2 (1.1-1.8); ALBUMIN 4.3 g/dL (4.0-5.0); ALKALINE PHOSPHATASE 63 U/L (40-129); ALT/SGPT 23 U/L (<41); AST/SGOT 23 U/L (10.0-50.0)
[2017-07-20] MEDS ORDERED: ACETAMINOPHEN 1,000 MG/100 ML BTL IVPB ONE (19:45)
[2017-07-20] MEDS ORDERED: OSTELTAMIVIR 75 MG CAP PO ONE (19:56)
--- NOTE | 2017-07-21 13:27 | RADIOLOGY REPORT ---
EXAM: CHEST, TWO VIEWS HISTORY: COUGH AND FEVER. TECHNIQUE: Upright PA and lateral views of the chest were obtained. Comparison: Two view chest radiographic examination dated 07/11/17. FINDINGS: The cardiomediastinal silhouette is normal in size and configuration. No pulmonary venous hypertension is seen. Minor linear atelectasis is now demonstrated in the lateral left lung base. There is minimal focal somewhat linear hazy opacity at the right lung base level on the frontal view. This may just relate to superimposition of vasculature though minor atelectasis or infiltrate would be difficult to exclude. There is a calcified granuloma demonstrated in the lateral upper right lung. The upper lungs appear somewhat emphysematous. IMPRESSION: 1. NEW MINIMAL LINEAR ATELECTASIS IN THE LATERAL LEFT LUNG BASE. 2. RELATIVE INCREASED SOMEWHAT BAND LIKE OPACITY IN THE RIGHT HEMITHORAX SPACE ON THE FRONTAL VIEW MAY JUST RELATE TO SUPERIMPOSITION OF NORMAL VASCULATURE THOUGH MINIMAL ATELECTASIS OR LESS LIKELY INFILTRATE CANNOT BE EXCLUDED. JOB NUMBER: [id number] [facility]
== END 2017-07-20 20:45 | disposition home or self-care (01) ==
LOC: ER 17:21
DX: J10.1 Influenza due to other identified influenza virus with other respiratory manifestations (principal); J01.90 Acute sinusitis, unspecified; R11.2 Nausea with vomiting, unspecified; J98.11 Atelectasis; R05 Cough
CPT/HCPCS: 99284 ×2; 96374; 96375; 80053; 87400; 85027; 71046; J1885; J2405

== ENCOUNTER 2017-07-25 18:22 | Emergency (ER) | payer MEDICARE, OTHER ==
[2017-07-25] MEDS ORDERED: 0.9 % SODIUM CHLORIDE 1,000 ML BAG IV ONE (19:05)
[2017-07-25] MEDS ORDERED: ONDANSETRON HCL IV 4 MG/2 ML VIAL IV ONE (19:05)
--- NOTE | 2017-07-25 19:11 | Emergency Department Record ---
History of Present Illness - General Stated Complaint: ABDOMINAL PAIN Time Seen by Provider: 07/25/17 18:41 Source: Patient, Family Mode of Arrival: Ambulatory Limitations: No limitations - History of Present Illness Initial Comments: 56 yo male presents with abdominal pain and blood in his stools. He reports he has had issue for the last three years. He has a past history of Meckel's Diverticulum, resection, exploratory surgery, cholecystectomy, recurrent abdominal pain, upper and lower endoscopy. He was seen by Dr Singh on 07/02 and has an upcoming appointment with GI. He was scheduled for colonoscopy last Wednesday but it was cancelled due to the Flu. 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 He had a small firm dark bowel movement this morning. No gross blood. MD Complaint: Abdominal pain, Other (Blood in the stools) -: Hour(s) Location: Periumbilical (just below the umbilicus) Radiation: Suprapubic Migration to: Periumbilical, Suprapubic Severity: Moderate Quality: Aching, Stabbing Consistency: Constant Improves With: Nothing Worsens With: Nothing Context: Other Associated Symptoms: Anorexia, Other (one small dark stool) - Related Data Previous Rx's Medication Instructions Recorded Hydrocodone/Acetaminophen [[place] 1 each PO TID PRN #10 tablet 06/29/17 5-325 Tablet] Hyoscyamine Sulfate [Levsin-Sl] 0.125 mg SL BID PRN #15 tab.subl 06/29/17 Doxycycline Hyclate [Doxycycline] 100 mg PO BID #20 cap 07/20/17 Oseltamivir Phosphate [Tamiflu] 75 mg PO BID #9 capsule 07/20/17 Allergies Allergy/AdvReac Type Severity Reaction Status Date / Time codeine Allergy ALTERED Verified 07/25/17 19:23 MENTAL STATUS lorazepam [From Ativan] AdvReac BEHAVIORAL Verified 07/25/17 19:23 CHANGES Review of Systems Constitutional: Denies: Chills, Fever, Malaise, Weakness Eyes: Denies: Eye discharge ENT: Reports: Congestion, Throat pain Respiratory: Reports: Cough. Denies: Stridor, Wheezes Cardiovascular: Denies: Chest pain, Palpitations, Syncope Endocrine: Reports: Fatigue Gastrointestinal: Reports: Abdominal pain. Denies: Diarrhea Genitourinary: Denies: Dysuria, Frequency, Hematuria Musculoskeletal: Denies: Arthralgia, Back pain, Joint swelling, Myalgia Skin: Denies: Bruising, Change in color Neurological: Denies: Confusion, Headache, Numbness Psychiatric: Denies: Anxiety Hematological/Lymphatic: Denies: Blood Clots, Easy bleeding, Easy bruising, Swollen glands Past Medical History - SOCIAL HISTORY Smoking Status: Never smoker Drug Use: None - RESPIRATORY Hx Respiratory Disorders: No - CARDIOVASCULAR Hx Cardio Disorders: No - NEURO Hx Neuro Disorders: Yes Hx CVA: Yes Hx Dementia: Yes Hx Neuropathy: Yes 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 - GI Hx GI Disorders: Yes Hx Nausea/Vomiting: Yes Hx Wt Loss/Wt Gain: Yes - Hx Genitourinary Disorders: Yes 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 negative: Conjunctival injection, Scleral icterus - ENT ENT exam: Normal exam, Mucous membranes moist, Normal orophraynx Ear exam: Normal external inspection Nasal Exam: Normal inspection Mouth exam: Normal external inspection Teeth exam: Normal inspection Throat exam: Normal inspection. negative: Tonsillar erythema, Tonsillomegaly, Tonsillar exudate, R peritonsillar mass, L peritonsillar mass - Neck Neck exam: Normal inspection, Full ROM. negative: Tenderness - Respiratory Respiratory exam: Normal lung sounds bilaterally. negative: Respiratory distress - Cardiovascular Cardiovascular Exam: Regular rate, Normal rhythm, Normal heart sounds - GI/Abdominal GI/Abdominal exam: Soft, Normal bowel sounds, Tenderness, Other (abdomen is very soft he is tender at the lcoation of an old surgical scar). negative: Distended - Rectal Rectal exam: Deferred - exam: Deferred - Extremities Extremities exam: Normal inspection, Full ROM, Normal capillary refill. negative: Tenderness - Back Back exam: Reports: Normal inspection, Full ROM. Denies: CVA tenderness (R), CVA tenderness (L), Muscle spasm, Rash noted, Tenderness - Neurological Neurological exam: Alert, Normal gait, Oriented X3, Reflexes normal - Psychiatric Psychiatric exam: Normal affect, Normal mood. negative: Agitated, Anxious - Skin Skin exam: Dry, Intact, Normal color, Warm Course Vital Signs 07/25/17 18:59 Temperature 98.0 F Pulse Rate [ 81 Pulse Ox Probe] Respiratory 20 Rate Blood Pressure 142/101 [Right Arm] Pulse Ox 94 L - Reevaluation(s) Reevaluation #1: 07/25/17 19:12 The vitals were reviewed No acute changes The CT scan on 06/29/17 was negative for acute process Dr Singh Consult was reviewed 07/25/17 19:22 07/25/17 20:14 No acute changes on the CMP, Lipase, or Lactic Acid 07/25/17 20:37 The patient appears much improved. He is relaxed on the phone. CT ready for scan at this time 07/25/17 21:[address] scan was reviewed. No acute changes or acute process. 07/25/17 21:30 The vitals are normal, the labs are normal, the CT scan is normal No signs of acute abdomen examination findings We discussed at length the results, follow up and recommendations for signs to immediately be seen. He was given a copy of today's study and prior studies. 07/25/17 23:16 Medical Decision Making - Lab Data Result diagrams: 07/25/17 19:35 07/25/17 19:35 Disposition Disposition: Discharge Clinical Impression: Abdominal pain Qualifiers: Abdominal location: unspecified location Qualified Code(s): R10.9 - Unspecified abdominal pain Disposition: Home, Self-Care Condition: (1) Good Instructions: Abdominal Pain (ED) Additional Instructions: Rest and stay hydrated Slowly add solid foods back in to your diet Be seen if any fever, vomiting, or concerns. Forms: Patient Portal Access Time of Disposition: 21:14 Quality - Quality Measures Quality Measures: N/A - Blood Pressure Screening Does Patient Have Any of the Following: No Blood Pressure Classification: Hypertensive Reading Systolic Measurement: 142 Diastolic Measurement: 101 Screening for High Blood Pressure: < Pre-Hypertensive BP, F/U Documented > [ G8950] Pre-Hypertensive Follow-up Interventions: Referral to alternative/primary care provider.
[2017-07-25] MEDS ORDERED: HYDROMORPHONE HCL 1 MG/ML SYRINGE IVP ONE ×2 (19:18→20:36)
[2017-07-25 19:42] LABS: BASO % 0.2 % (0-6); GRAN % 41.2 % (47-80); HEMATOCRIT 41.9 % (42.0-52.0); HEMOGLOBIN 15.4 gm/dl (14.0-18.0); LYMPH % 47.7 % (16-45); MEAN CORPUSCULAR HEMOGLOBIN 32.7 pg (27-33); MEAN CORPUSCULAR HGB CONC 36.8 g/dl (32-36); MEAN PLATELET VOLUME 9.6 fl (7.4-10.4); MONO % 8.9 % (0-9); PLATELET COUNT 187 K/uL (130-400); RED BLOOD COUNT 4.71 M/uL (4.40-5.70); RED CELL DISTRIBUTION WIDTH 11.8 % (11.5-14.5); WHITE BLOOD COUNT W/O DIFF 4.6 K/uL (4.2-12.2)
[2017-07-25 19:51] LABS: BLOOD UREA NITROGEN 13 mg/dL (6-20); EST GLOMERULAR FILTRATION RATE > 60 mL/min
[2017-07-25 19:52] LABS: TOTAL PROTEIN 6.5 g/dL (6.6-8.7)
[2017-07-25 19:54] LABS: GLUCOSE,RANDOM 93 mg/dL (74-109); INR 1.05; PARTIAL THROMBOPLASTIN TIME 24.7 SECONDS (24.5-39.1); PROTHROMBIN TIME (PATIENT) 11.3 SECONDS (9.5-12.1)
[2017-07-25 19:56] LABS: ALT/SGPT 19 U/L (<41)
[2017-07-25 19:57] LABS: ALBUMIN 4.2 g/dL (4.0-5.0); ALKALINE PHOSPHATASE 68 U/L (40-129); AST/SGOT 15 U/L (10.0-50.0); BILIRUBIN,DIRECT < 0.2 mg/dL (0-0.3); LIPASE 28 U/L (13-60)
[2017-07-25] MEDS ORDERED: DICYCLOMINE HCL 10 MG/ML AMPUL IM ONE (21:08)
[2017-07-25] MEDS ORDERED: HYDROCODONE/APAP 7.5/325MG TABLET PO ONE (21:30)
--- NOTE | 2017-07-26 08:05 | CT SCAN REPORT ---
EXAM: CT OF THE ABDOMEN AND PELVIS WITH CONTRAST HISTORY: LOWER ABDOMINAL PAIN. TECHNIQUE: Sequential axial images were obtained from the diaphragms through the ischiorectal fossa after intravenous and oral administration of 100 ml of Omnipaque 300 contrast material. Comparison: 06/29/17. FINDINGS: The visualized lung bases appear normal. The gallbladder is surgically removed. The liver appears homogeneous. The pancreas and spleen appear normal. The adrenal glands and kidneys appear normal. There are cystic lesions in both kidneys similar in appearance when compared to the prior examination. The small bowel appears normal. The appendix is visualized and appears normal. There is postop surgical change in the right lower quadrant. No evidence of obstruction. The urinary bladder appears normal. The prostate gland appears normal. IMPRESSION: POSTOP SURGICAL CHANGE RIGHT LOWER QUADRANT. NO ACUTE ABDOMINAL OR PELVIC DISEASE PROCESS IS APPRECIATED. THE APPENDIX IS VISUALIZED AND APPEARS NORMAL. JOB NUMBER: [id number] MTDD
== END 2017-07-25 21:49 | disposition home or self-care (01) ==
LOC: ER 18:22
DX: R10.33 Periumbilical pain (principal); K92.1 Melena
CPT/HCPCS: 74177; 80048; 80076; 83605; 83690; 85025; 85610; 85730; 96374; 96375; 96376; 99284; J1170; J2405; J7030

== ENCOUNTER 2017-08-18 23:27 | Emergency (ER) | payer MEDICARE, OTHER ==
[2017-08-19 00:05] LABS: HEMATOCRIT 41.9 % (42.0-52.0); HEMOGLOBIN 14.8 gm/dl (14.0-18.0); MEAN CELL VOLUME 92.1 fl (81-97); MEAN CORPUSCULAR HEMOGLOBIN 32.5 pg (27-33); MEAN CORPUSCULAR HGB CONC 35.3 g/dl (32-36); MEAN PLATELET VOLUME 10.5 fl (7.4-10.4); PLATELET COUNT 160 K/uL (130-400); RED BLOOD COUNT 4.55 M/uL (4.40-5.70); RED CELL DISTRIBUTION WIDTH 12.2 % (11.5-14.5); WHITE BLOOD COUNT W/O DIFF 3.3 K/uL (4.2-12.2)
[2017-08-19 00:24] LABS: ALB/GLOB RATIO 1.9 (1.1-1.8); ALBUMIN 4.3 g/dL (4.0-5.0); ALKALINE PHOSPHATASE 77 U/L (40-129); ALT/SGPT 36 U/L (<41); AST/SGOT 24 U/L (10.0-50.0); BLOOD UREA NITROGEN 11 mg/dL (6-20); CREATINE PHOSPHOKINASE 64 U/L (39-308); EST GLOMERULAR FILTRATION RATE > 60 mL/min; GLUCOSE,RANDOM 95 mg/dL (74-109); TOTAL PROTEIN 6.6 g/dL (6.6-8.7)
[2017-08-19 00:25] LABS: CKMB 1.2 ng/mL (<6.73)
--- NOTE | 2017-08-19 00:33 | Emergency Department Record ---
History of Present Illness - General Chief Complaint: Chest Pain Stated Complaint: CP/DIZZINESS Time Seen by Provider: 08/18/17 23:40 Source: Patient Mode of Arrival: Ambulatory Limitations: No limitations - History of Present Illness Initial Comments: pt co lightheadedness, dizziness, sob, feeling like he is not getting enough oxygen, and chest pain tonight. Complaint: Chest pain Onset/Timin -: Hour(s) Pain Location: Left chest Severity: Mild Quality: Tightness Consistency: Constant Improves With: Nothing Worsens With: Nothing Anginal Symptoms: Nausea Other Symptoms: Cough - Related Data Home Medications Medication Instructions Recorded Confirmed Last Taken Dicyclomine HCl 20 mg PO TID PRN 08/19/17 08/19/17 Unknown Nitrofurantoin [place] [Macrobid] 1 tab PO ASDIR 08/19/17 08/19/17 Unknown Sucralfate [Sucralfate] 1 gm PO ASDIR 08/19/17 08/19/17 Unknown Previous Rx's Medication Instructions Recorded Hydrocodone/Acetaminophen [[place] 1 each PO TID PRN #10 tablet 06/29/17 5-325 Tablet] Hyoscyamine Sulfate [Levsin-Sl] 0.125 mg SL BID PRN #15 tab.subl 06/29/17 Doxycycline Hyclate [Doxycycline] 100 mg PO BID #20 cap 07/20/17 Meclizine HCl [Antivert] 25 mg PO BID #10 tab 08/19/17 Allergies Allergy/AdvReac Type Severity Reaction Status Date / Time codeine Allergy ALTERED Verified 08/18/17 23:35 MENTAL STATUS lorazepam [From Ativan] AdvReac BEHAVIORAL Verified 08/18/17 23:35 CHANGES Travel Screening - Travel/Exposure Within Last 30 Days Have you traveled within the last 30 days?: No - Travel/Exposure Within Last Year Have you traveled outside the [place] in the last year?: No - Additonal Travel Details Have you been exposed to anyone with a communicable illness?: No - Travel Symptoms Symptom Screening: None Review of Systems Reviewed: No additional complaints except as noted below Constitutional: Reports: As per HPI. Denies: Chills, Fever, Malaise, Night sweats, Weakness, Weight change Eyes: Reports: As per HPI. Denies: Eye discharge, Eye pain, Photophobia, Vision change ENT: Reports: As per HPI. Denies: Congestion, Dental pain, Ear pain, Epistaxis , Hearing loss, Throat pain Respiratory: Reports: As per HPI. Denies: Cough, Dyspnea, Hemoptysis, Stridor, Wheezes Cardiovascular: Reports: As per HPI. Denies: Arrhythmia, Chest pain, Dyspnea on exertion, Edema, Murmurs, Orthopnea, Palpitations, Paroxysmal nocturnal dyspnea, Rheumatic Fever, Syncope Endocrine: Reports: As per HPI. Denies: Fatigue, Heat or cold intolerance, Polydipsia, Polyuria Gastrointestinal: Reports: As per HPI. Denies: Abdominal pain, Constipation, Diarrhea, Hematemesis, Hematochezia, Melena, Nausea, Vomiting Genitourinary: Reports: As per HPI. Denies: Dysuria, Frequency, Hematuria, Incontinence, Retention, Testicular pain, Testicular mass, Urgency Musculoskeletal: Reports: As per HPI. Denies: Arthralgia, Back pain, Gout, Joint swelling, Myalgia, Neck pain Skin: Reports: As per HPI. Denies: Bruising, Change in color, Change in hair/ nails, Lesions, Pruritus, Rash Neurological: Reports: As per HPI. Denies: Abnormal gait, Confusion, Headache, Numbness, Paresthesias, Seizure, Tingling, Tremors, Vertigo, Weakness Psychiatric: Reports: As per HPI. Denies: Anxiety, Auditory hallucinations, Depression, Homicidal thoughts, Suicidal thoughts, Visual hallucinations Hematological/Lymphatic: Reports: As per HPI. 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 - ENDOCRINE Hx Endocrine Disorders: Yes Hx Thyroid Disease: Yes - MUSCULOSKELETAL Hx Musculoskeletal Disorders: Yes Hx Fibromyalgia: Yes - PSYCH Hx Psych Problems: Yes Hx Anxiety: Yes Hx Depression: Yes (ptsd) - HEMATOLOGY/ONCOLOGY Hx Hematology/Oncology Disorders: No Family Medical History Any Significant Family History?: No Physical Exam - General General Appearance: Alert, Oriented x3, Cooperative, Mild distress - Head Head exam: Normal inspection - Eye Eye exam: Normal appearance, PERRL, EOMI Pupils: Normal accommodation - ENT ENT exam: Normal exam, Mucous membranes moist, Normal external ear exam, Normal orophraynx Ear exam: Normal external inspection. negative: External canal tenderness Nasal Exam: Normal inspection. negative: Discharge, Sinus tenderness Mouth exam: Normal external inspection, Tongue normal Teeth exam: Normal inspection. negative: Dental caries Throat exam: Normal inspection. negative: Tonsillar erythema, Tonsillar exudate - Neck Neck exam: Normal inspection, Full ROM. negative: Tenderness - Respiratory Respiratory exam: Normal lung sounds bilaterally. negative: Respiratory distress - Cardiovascular Cardiovascular Exam: Regular rate, Normal rhythm, Normal heart sounds - GI/Abdominal GI/Abdominal exam: Soft, Normal bowel sounds. negative: Tenderness - Rectal Rectal exam: Deferred - exam: Deferred - Extremities Extremities exam: Normal inspection, Full ROM, Normal capillary refill. negative: Tenderness - Back Back exam: Reports: Normal inspection, Full ROM. Denies: Muscle spasm, Rash noted, Tenderness - Neurological Neurological exam: Alert, CN II-XII intact, Normal gait, Oriented X3 - Psychiatric Psychiatric exam: Anxious, Normal affect, Normal mood - Skin Skin exam: Dry, Intact, Normal color, Warm Course Vital Signs 08/18/17 08/18/17 23:28 23:36 Temperature 97.8 F Pulse Rate 76 Respiratory 20 Rate Blood Pressure 138/84 Pulse Ox 97 Medical Decision Making - Lab Data Result diagrams: 08/18/17 23:35 08/18/17 23:50 Lab Results 08/18/17 08/18/17 08/18/17 Range/Units 23:35 23:35 23:50 WBC 3.3 L (4.2-12.2) K/uL RBC 4.55 (4.40-5.70) M/uL Hgb 14.8 (14.0-18.0) gm/dl Hct 41.9 L (42.0-52.0) % MCV 92.1 (81-97) fl MCH 32.5 (27-33) pg MCHC 35.3 (32-36) g/dl RDW 12.2 (11.5-14.5) % Plt Count 160 (130-400) K/uL MPV 10.5 H (7.4-10.4) fl Neutrophils % 26.0 L (47-80) % Band Neutrophils % 0.0 (0-5) % Eosinophils % Not Reportable Basophils % Not Reportable Lymphocytes 56.0 H (16-45) % Monocytes 15.0 H (0-9) % Basophils 0.0 (0-6) % Eosinophil Count 3.0 (0-6) % Sodium 142 Cancelled (136-145) mmol/L Potassium 3.6 Cancelled (3.4-4.5) mmol/L Chloride 103 Cancelled (98-107) mmol/L Carbon Dioxide 27.0 Cancelled (22-29) mmol/L Anion Gap 12.0 Cancelled (7-16) BUN 11 Cancelled (6-20) mg/dL Creatinine 1.0 Cancelled (0.7-1.2) mg/dL Estimated GFR > 60 Cancelled mL/min Random Glucose 95 Cancelled (74-109) mg/dL Calcium 8.6 Cancelled (8.6-10.0) mg/dL Total Bilirubin 0.40 Cancelled (0.2-1.0) mg/dL AST 24 Cancelled (10.0-50.0) U/L ALT 36 Cancelled (<41) U/L Alkaline Phosphatase 77 Cancelled (40-129) U/L Creatine Kinase 64 (39-308) U/L CK-MB (CK-2) 1.2 (<6.73) ng/mL Troponin T < 0.010 (0-0.010) ng/mL Total Protein 6.6 Cancelled (6.6-8.7) g/dL Albumin 4.3 Cancelled (4.0-5.0) g/dL Globulin 2.3 Cancelled (1.4-4.8) gm/dL Albumin/Globulin Ratio 1.9 H Cancelled (1.1-1.8) Disposition Disposition: Discharge Clinical Impression: Dizziness, Viral syndrome Chest pain Qualifiers: Chest pain type: unspecified Qualified Code(s): R07.9 - Chest pain, unspecified Disposition: Home, Self-Care Condition: (1) Good Instructions: Chest Pain (ED), Viral Syndrome (ED), Dizziness (ED) Additional Instructions: follow up with family doctor. return sooner if worse. push fluids Prescriptions: Meclizine HCl [Antivert] 25 mg PO BID #10 tab Forms: Patient Portal Access Quality - Quality Measures Quality Measures: N/A - Blood Pressure Screening Does Patient Have Any of the Following: No Blood Pressure Classification: Pre-Hypertensive BP Reading Systolic Measurement: 138 Diastolic Measurement: 84 Screening for High Blood Pressure: < Pre-Hypertensive BP, F/U Documented > [ G8950] Pre-Hypertensive Follow-up Interventions: Follow-up with rescreen every year.
[2017-08-19 00:55] LABS: URINE APPEARANCE CLEAR; URINE BILIRUBIN NEGATIVE (NEGATIVE); URINE BLOOD NEGATIVE (NEGATIVE); URINE COLOR YELLOW; URINE GLUCOSE (UA) NEGATIVE (NEGATIVE); URINE KETONE NEGATIVE (NEGATIVE); URINE LEUKOCYTE ESTERASE NEGATIVE (NEGATIVE); URINE NITRITE NEGATIVE (NEGATIVE); URINE PROTEIN NEGATIVE (NEGATIVE); URINE UROBILINOGEN 0.2 E.U./dL (0.20 - 1.00)
[2017-08-19] MEDS ORDERED: ACETAMINOPHEN 500 MG TABLET PO ONE (03:21)
[2017-08-19] MEDS ORDERED: MECLIZINE 25 MG TABLET PO ONE (03:32)
--- NOTE | 2017-08-20 07:27 | RADIOLOGY REPORT ---
EXAM: CHEST, TWO VIEWS HISTORY: LEFT SIDED CHEST TIGHTNESS. DIZZINESS. TECHNIQUE: Upright PA and lateral views of the chest were obtained. Comparison: Two view chest radiographic examination dated 07/20/17. FINDINGS: The heart remains normal in size and the pulmonary vasculature is nondilated. There has been interval clearing of the minor atelectasis from the lateral left lung base. The patchy somewhat band like opacity previously demonstrated in the right hemithorax base is essentially clear though there is minor new linear atelectasis in the lateral right base. A tiny calcified granuloma is questioned in the lateral upper right lung. The lungs and pleural spaces are otherwise clear. The lungs are borderline to mildly hyperinflated. Mild degenerative changes of the visualized spine and shoulder girdles. The distal right clavicle again appears surgically foreshortened. IMPRESSION: INTERVAL CLEARING OF LINEAR ATELECTASIS FROM THE LATERAL LEFT LUNG BASE. A SOMEWHAT ILL DEFINED BAND LIKE OPACITY PREVIOUSLY DEMONSTRATED IN THE RIGHT BASE HAS ESSENTIALLY CLEARED THOUGH THERE IS A SMALL FOCUS OF LINEAR ATELECTASIS NOW PRESENT LATERALLY IN THE RIGHT BASE, OTHERWISE NO CHANGE. JOB NUMBER: [id number] [facility]
--- NOTE | 2017-08-20 07:31 | CT SCAN REPORT ---
EXAM: CT OF THE HEAD WITHOUT CONTRAST HISTORY: DIZZINESS AND HEADACHE. TECHNIQUE: Routine noncontrast CT examination of the head was performed. Comparison: None. FINDINGS: The ventricles and subarachnoid spaces are normal in size. No area of abnormally increased or decreased attenuation is noted throughout the brain substance. No abnormal extraaxial fluid collection is seen. No skull abnormality. Mucosal thickening is scattered within the maxillary sinuses, sphenoid sinuses, the majority of ethmoid air cells, and the inferior aspects of the frontal sinuses. The mastoid air cells are clear. The orbits are normal in appearance. IMPRESSION: 1. NO CT EVIDENCE OF AN ACUTE INTRACRANIAL ABNORMALITY NOR MASS. 2. MILD CHRONIC INFLAMMATORY CHANGES THROUGHOUT THE MAJORITY OF THE PARANASAL SINUSES. JOB NUMBER: [id number] [facility]
== END 2017-08-19 04:01 | disposition home or self-care (01) ==
LOC: ER 23:27
DX: R07.9 Chest pain, unspecified (principal); R42 Dizziness and giddiness; R06.02 Shortness of breath; B34.9 Viral infection, unspecified; R11.0 Nausea
CPT/HCPCS: 70450; 71046; 80053; 81003; 82375; 82550; 82553; 84484; 85027; 93005; 93010; 99284

== ENCOUNTER 2017-11-02 18:49 | Emergency (ER) | payer MEDICARE, OTHER ==
--- NOTE | 2017-11-02 19:11 | Emergency Department Record ---
History of Present Illness - General Chief complaint: Male Urogenital Problem Stated complaint: POSS UTI, SWOLLEN PROSTATE Time Seen by Provider: 11/02/17 19:03 Source: Patient Mode of Arrival: Ambulatory Limitations: No limitations - History of Present Illness Initial comments: 57 yo male presents to ED with a CC of increased difficulty with urination today. Patient reports a history of an enlarged prostate, is scheduled for prostate stenting in 2 weeks as a result. Patient reports similar symptoms previously resulting from UTI, denies fevers, chills, flank pain, or dysuria symptoms. 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 MD Complaint: Other (intermittent urinary retention) Onset/Timin -: Days(s) Location: Abdomen Severity: Moderate Severity scale (1-10): 7 Quality: Aching, Dull Consistency: Constant Improves with: None Worsens with: None Other Reports: Other - Related Data Previous Rx's Medication Instructions Recorded Hydrocodone/Acetaminophen [[place] 1 each PO TID PRN #10 tablet 06/29/17 5-325 Tablet] Hyoscyamine Sulfate [Levsin-Sl] 0.125 mg SL BID PRN #15 tab.subl 06/29/17 Doxycycline Hyclate [Doxycycline] 100 mg PO BID #20 cap 07/20/17 Meclizine HCl [Antivert] 25 mg PO BID #10 tab 08/19/17 Allergies Allergy/AdvReac Type Severity Reaction Status Date / Time codeine Allergy ALTERED Verified 11/02/17 18:55 MENTAL STATUS lorazepam [From Ativan] AdvReac BEHAVIORAL Verified 11/02/17 18:55 CHANGES Travel Screening - Travel/Exposure Within Last 30 Days Have you traveled within the last 30 days?: Yes Location Detail:: [place] - Travel/Exposure Within Last Year Have you traveled outside the [place] in the last year?: No - Additonal Travel Details Have you been exposed to anyone with a communicable illness?: No - Travel Symptoms Symptom Screening: None Review of Systems Constitutional: Denies: Chills, Fever, Malaise, Night sweats Eyes: Denies: Eye discharge, Eye pain ENT: Denies: Congestion, Ear pain, Epistaxis Respiratory: Denies: Cough, Dyspnea Cardiovascular: Denies: Chest pain, Dyspnea on exertion Endocrine: Denies: Fatigue, Heat or cold intolerance Gastrointestinal: Reports: Abdominal pain. Denies: Nausea, Vomiting Genitourinary: Reports: Retention. Denies: Frequency, Hematuria, Incontinence, Testicular pain, Testicular mass Musculoskeletal: Denies: Arthralgia, Back pain Skin: Denies: Bruising, Change in color Neurological: Denies: Abnormal gait, Confusion, Headache Psychiatric: Denies: Anxiety Hematological/Lymphatic: Denies: Anemia, Blood Clots Past Medical History - SOCIAL HISTORY Smoking Status: Never smoker Alcohol Use: Rare Drug Use: None - RESPIRATORY Hx Respiratory Disorders: No - CARDIOVASCULAR Hx Cardio Disorders: No - NEURO Hx Neuro Disorders: Yes Hx CVA: Yes Hx Dementia: Yes Hx Neuropathy: Yes 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 - GI Hx GI Disorders: Yes Hx Nausea/Vomiting: Yes Hx Wt Loss/Wt Gain: Yes - Hx Genitourinary Disorders: Yes 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 - ENDOCRINE Hx Endocrine Disorders: Yes Hx Thyroid Disease: Yes - MUSCULOSKELETAL Hx Musculoskeletal Disorders: Yes Hx Fibromyalgia: Yes - PSYCH Hx Psych Problems: Yes Hx Anxiety: Yes Hx Depression: Yes (ptsd) - HEMATOLOGY/ONCOLOGY Hx Hematology/Oncology Disorders: No Family Medical History Any Significant Family History?: No Physical Exam - General General Appearance: Alert, Oriented x3, Cooperative, Mild distress, Anxious Limitations: No limitations - Head Head exam: Atraumatic, Normocephalic, Normal inspection Head exam detail: negative: Abrasion, Contusion, Cooper's sign, General tenderness, Hematoma, Laceration - Eye Eye exam: Normal appearance. negative: Conjunctival injection, Periorbital swelling, Periorbital tenderness, Scleral icterus - ENT Ear exam: negative: Auricular hematoma, Auricular trauma Nasal Exam: negative: Active bleeding, Discharge, Dried blood Mouth exam: negative: Drooling, Laceration, Tongue elevation - Neck Neck exam: Normal inspection. negative: Meningismus, Tenderness - Respiratory Respiratory exam: Normal lung sounds bilaterally. negative: Respiratory distress, Rhonchi, Stridor, Wheezes - Cardiovascular Cardiovascular Exam: Regular rate, Normal rhythm, Normal heart sounds - GI/Abdominal GI/Abdominal exam: Soft. negative: Rebound, Rigid, Tenderness - Rectal Rectal exam: Deferred - exam: Deferred - Extremities Extremities exam: Normal inspection. negative: Calf tenderness, Pedal edema, Tenderness - Back Back exam: Denies: CVA tenderness (R), CVA tenderness (L) - Neurological Neurological exam: Alert, Normal gait, Oriented X3 - Psychiatric Psychiatric exam: Normal affect, Normal mood - Skin Skin exam: Normal color. negative: Abrasion Type of lesion: negative: abrasion Course Vital Signs 11/02/17 18:57 Temperature 97.7 F Pulse Rate 57 L Respiratory 18 Rate Blood Pressure 119/98 Pulse Ox 95 - Reevaluation(s) Reevaluation #1: 11/02/17 19:42 UA reviewed and appears negative for an acute process. Patient is able to urinate, and appears stable for discharge with urology follow -up in 3-5 days as directed. Disposition Disposition: Discharge Clinical Impression: Urinary retention Disposition: Home, Self-Care Condition: (2) Stable Instructions: Urinary Retention in Men (ED) Additional Instructions: Return to ED if your symptoms worsen or if you have any concerns. Follow-up with your urologist in 3-5 days as directed. Forms: Patient Portal Access Time of Disposition: 19:44 Quality - Quality Measures Quality Measures: N/A - Blood Pressure Screening Does Patient Have Any of the Following: No Blood Pressure Classification: Pre-Hypertensive BP Reading Systolic Measurement: 136 Diastolic Measurement: 89 Screening for High Blood Pressure: < Pre-Hypertensive BP, F/U Documented > [ G8950] Pre-Hypertensive Follow-up Interventions: Referral to alternative/primary care provider.
[2017-11-02 19:38] LABS: URINE APPEARANCE CLEAR; URINE BILIRUBIN NEGATIVE (NEGATIVE); URINE BLOOD NEGATIVE (NEGATIVE); URINE COLOR YELLOW; URINE GLUCOSE (UA) NEGATIVE (NEGATIVE); URINE KETONE NEGATIVE (NEGATIVE); URINE LEUKOCYTE ESTERASE NEGATIVE (NEGATIVE); URINE NITRITE NEGATIVE (NEGATIVE); URINE PROTEIN NEGATIVE (NEGATIVE); URINE UROBILINOGEN 0.2 E.U./dL (0.20 - 1.00)
== END 2017-11-02 19:53 | disposition home or self-care (01) ==
LOC: ER 18:49
DX: R33.9 Retention of urine, unspecified (principal); R30.0 Dysuria
CPT/HCPCS: 81003; 99282